=== PATIENT | female | born 1995 | race Caucasian/White ===

== ENCOUNTER → 2016-11-30 | Outpatient (CLI) | payer SELFPAY ==
[~2016-11-30] MED LIST: ANTIBIOTIC; BACTRIM DS 8001 TA1 PO; CLINDAMYCIN150 MG PO; COLACE100 MG PO; DIAZEPAM5 MG PO; EFFEXOR PO; FE-TABS325 MG PO; K-TAB20 MEQ PO; LAMOTRIGINE100 MG PO; MOTRIN800 MG PO; NAPROSYN500 MG PO; PERCOCET 325 MG1 TA6 PO; PRENATAL ONE DA1 TAB PO; PROVERA10 MG PO; Peridex 473 ML473 ML PO; QUETIAPINE FUM100 M3 PO; SEROQUEL PO; VISTARIL PO
== END | disposition home or self-care (01) ==
LOC: LAB 18:32
DX: N92.6 Irregular menstruation, unspecified (principal); R94.6 Abnormal results of thyroid function studies; R73.09 Other abnormal glucose; R63.5 Abnormal weight gain

== ENCOUNTER 2016-12-05 14:54 | Emergency (ER) | payer OTHER ==
[~2016-12-05] VITALS: Ht 154.9 cm; Wt 72.6 kg
[~2016-12-05 14:54] MED LIST changes: -CLINDAMYCIN150 MG PO; -DIAZEPAM5 MG PO; -K-TAB20 MEQ PO; -LAMOTRIGINE100 MG PO; -NAPROSYN500 MG PO; -Peridex 473 ML473 ML PO; -QUETIAPINE FUM100 M3 PO
[2016-12-05] MEDS ORDERED: DIAZEPAM5 MG PO (15:02)
[2016-12-05] MEDS ORDERED: QUETIAPINE FUM100 M3 PO (15:02)
[2016-12-05] MEDS ORDERED: LAMOTRIGINE100 MG PO (15:02)
[2016-12-05] MEDS ORDERED: NAPROSYN500 MG PO (15:05)
[2016-12-05] MEDS ORDERED: Peridex 473 ML473 ML PO (15:05)
[2016-12-05] MEDS ORDERED: CLINDAMYCIN150 MG PO (15:05)
[2016-12-28] MEDS ORDERED: K-TAB20 MEQ PO (02:15)
== END 2016-12-05 15:14 | disposition home or self-care (01) ==
LOC: ED 14:54
DX: K04.7 Periapical abscess without sinus (principal); F17.200 Nicotine dependence, unspecified, uncomplicated; Z88.0 Allergy status to penicillin; Z79.899 Other long term (current) drug therapy

== ENCOUNTER 2017-02-25 21:07 | Inpatient (IN) | payer OTHER ==
[~2017-02-25] VITALS: Ht 152.4 cm; Wt 66.7 kg
--- NOTE | ~2017-02-25 | EKG ---
[place], [place] ELECTROCARDIOGRAM REPORT [id number] #: [id number] ROOM: 424 DOCTOR: MAYA OLSON MD BIRTHDATE: [birth year] DOS: 02/25/2017 STUDY DONE: 02/25/2017 at 2334. Normal sinus rhythm at rate of 67, normal axis, normal EKG. MAYA OLSON MD CM:EKGRPT:ELECTROCARDIOGRAM REPORT [id number] 1555 MAYA OLSON MD
--- NOTE | ~2017-02-25 | O ---
[place], [place] OPERATIVE NOTE NAME: ISABEL MATA [facility] #: [id number] UNIT #: [id number] ROOM: 424 DOCTOR: SO PATINO DO BIRTHDATE: [birth year] DOS: 02/26/2017 PREOPERATIVE DIAGNOSIS: Right arm foreign body, antecubital abscess. POSTOPERATIVE DIAGNOSIS: Right arm foreign body, antecubital abscess. OPERATIVE PROCEDURE: Right arm foreign body antecubital region attempted removal of foreign body under C-arm guidance. SURGEON: So Patino DO. SUPERVISOR DOG LICENSE OFFICER: Camilla. INDICATIONS: The patient is a 21-year-old female with a history of IV drug abuse, which resulted in a hypodermic needle breaking off in the right antecubital region. The patient reported this just happened in the last day. She developed redness, swelling and tenderness in the antecubital area. No lymphangitis or red streaking. Risks and benefits of the procedure were explained to the patient preoperatively. Preoperative labs and x-rays were obtained. The patient was on IV antibiotics. PROCEDURE IN DETAIL: The right arm was marked in the holding room. The patient was brought to the operative suite. The right upper extremity was prepped and draped in usual orthopedic manner. Tourniquet was applied to the right upper arm. The arm was elevated and the tourniquet was inflated to 250 mmHg. C-arm was utilized to identify the location of the foreign body, which was approximately 0.7-1 cm, antecubital region, appeared to be superficial. The area was injected with Marcaine 0.5% with epinephrine in a superficial skin wheal. A monitored anesthesia was performed by the nurse dress fitter. The incision was made sharply with a scalpel approximately 2 cm in length just medial to the erythematous region and just lateral to the insertion of the biceps. Under loupe magnification, the subcutaneous tissue was spread. The C-arm was utilized to follow the foreign body, and self-retaining retractor, mosquito hemostats and tenotomy scissors were used to further evaluate the position of the foreign body. The foreign body was then noted to migrate proximally approximately 3 inches proximal to the incision. Concern was for an intravascular foreign body as the soft tissue had not been violated proximal to the antecubital area. The wound was copiously irrigated with normal saline. Cultures were obtained from the debrided tissue. The wound was closed in a horizontal mattress suture fashion. Xeroform, 4 x 4s and a Tegaderm dressing were applied. The tourniquet was released. The drapes were removed. Ultrasound was utilized to locate the foreign body without success. The anesthetic was reversed and the patient was taken to recovery room in satisfactory condition. COUNTS: Sponge and needle count correct. ESTIMATED BLOOD LOSS: Less than 5 mL. SPECIMENS: Cultures and Gram stain. [place], [place] OPERATIVE NOTE NAME: [facility] [id number] UNIT #: [id number] ROOM: [facility] DOCTOR: SO PATINO DO BIRTHDATE: [birth year] DRAINS: None. PACKING: None. The portable flat plate x-rays were obtained in the PACU to further determine the position of this foreign body, which is anticipated to be a needle from the intravenous injection. These indicated that the foreign body was no longer at the level of the elbow and possibly was at the proximal humeral level, but again this was inconclusive. The above findings were discussed with the patient's attending physician and radiologist. The decision was made for transfer of the patient to a facility with Vascular Surgery capabilities. SO PATINO DO CM:OPRECORD:OPERATIVE NOTE 1525 1705 SO PATINO DO 03/08/17 0746 interface
[~2017-02-25 21:07] MED LIST changes: +CLINDAMYCIN150 MG PO; +DIAZEPAM5 MG PO; +K-TAB20 MEQ PO; +LAMOTRIGINE100 MG PO; +NAPROSYN500 MG PO; +Peridex 473 ML473 ML PO; +QUETIAPINE FUM100 M3 PO
[2017-02-25 21:13] VITALS: BP 137/83
[2017-02-25] MEDS ORDERED: ZOLOFT25 MG PO (21:15)
[2017-02-25] MEDS ORDERED: SEROQUEL200 MG PO (21:16)
[2017-02-25] MEDS ORDERED: LAMICTAL100 MG PO (21:16)
[2017-02-25] MEDS ORDERED: EFFEXOR XR75 M1 PO (21:16)
[2017-02-25] MEDS ORDERED: VALIUM5 MG PO (21:16)
[2017-02-25 22:12] LABS: BILIRUBIN NEGATIVE (NEGATIVE); BLOOD TRACE-INTACT (NEGATIVE); CLARITY SL CLOUDY (CLEAR); COLOR YELLOW (YELLOW); GLUCOSE NEGATIVE (NEGATIVE); KETONE NEGATIVE (NEGATIVE); LEUKO ESTERASE NEGATIVE (NEGATIVE); NITRITE NEGATIVE (NEGATIVE); PH 6.5 (5.0-9.0); PROTEIN NEGATIVE (NEGATIVE)
[2017-02-25 22:19] LABS: EPITHELIAL CELLS 45-50
[2017-02-25 22:20] LABS: URINE REFLEX COMMENT NO (NO); WBC 0-2 wbc/hpf (0-5)
[2017-02-25 22:31] LABS: URINE AMPHETAMINES < 1000 (1000ng/ml); URINE BARBITURATES < 200 (200ng/ml); URINE COCAINE > 300 (300ng/ml)
[2017-02-25 22:33] LABS: BASO % 0.4 % (0.0-1.0); EOS # 0.1 10*3/uL (0.0-0.4); EOS % 1.1 % (1.0-4.0); HEMATOCRIT 37.7 % (37.0-47.0); HEMOGLOBIN 12.3 g/dl (12.0-16.0); LYMPH # 2.1 10*3/uL (1.3-4.4); LYMPH % 25.4 % (27.0-41.0); MEAN CELL VOLUME 88.5 fl (81.0-99.0); MEAN CORPUSCULAR HGB 28.9 pg (27.0-31.0); MEAN CORPUSCULAR HGB CONC 32.6 g/dl (33.0-37.0); MEAN PLATELET VOLUME 8.8 fl (9.6-12.3); MONO # 0.5 10*3/uL (0.1-1.0); MONO % 5.9 % (3.0-9.0); NEUT # 5.5 10*3/uL (2.3-7.9); PLATELET COUNT AUTOMATED 436 10*3/uL (130-400); RED BLOOD COUNT 4.26 10*6/uL (4.10-5.10); RED CELL DISTRI WIDTH 13.7 % (0-14.5); WHITE BLOOD COUNT 8.3 10*3/uL (4.8-10.8)
[2017-02-25 22:40] LABS: PROTHROMBIN TIME 10.4 SECONDS (9.0-12.4)
[2017-02-25 22:49] LABS: ALBUMIN 3.7 gm/dl (3.1-4.5); ALKALINE PHOSPHATASE 70 U/L (45-117); BILIRUBIN, TOTAL 0.2 mg/dl (0.2-1.0); BUN 4 mg/dl (7-24); CARBON DIOXIDE 27 mmol/L (21-32); CHLORIDE 105 mmol/L (98-107); EST GLOM FILT AFRICAN AMERICAN > 60 ml/min; GLUCOSE 94 mg/dL (65-99); POTASSIUM 3.6 mmol/L (3.5-5.1); SGOT/AST 46 IU/L (3-35); SGPT/ALT 61 U/L (12-78); SODIUM 140 mmol/L (136-145)
[2017-02-25 23:07] VITALS: BP 109/65
[2017-02-26 06:30] LABS: BASO % 0.4 % (0.0-1.0); EOS # 0.3 10*3/uL (0.0-0.4); EOS % 2.7 % (1.0-4.0); HEMATOCRIT 36.3 % (37.0-47.0); HEMOGLOBIN 11.6 g/dl (12.0-16.0); LYMPH # 4.5 10*3/uL (1.3-4.4); LYMPH % 46.1 % (27.0-41.0); MEAN CELL VOLUME 89.6 fl (81.0-99.0); MEAN CORPUSCULAR HGB 28.6 pg (27.0-31.0); MONO # 0.8 10*3/uL (0.1-1.0); MONO % 7.7 % (3.0-9.0); NEUT # 4.2 10*3/uL (2.3-7.9); NEUT % 42.9 % (47.0-73.0); PLATELET COUNT AUTOMATED 399 10*3/uL (130-400); RED BLOOD COUNT 4.05 10*6/uL (4.10-5.10); RED CELL DISTRI WIDTH 13.8 % (0-14.5); WHITE BLOOD COUNT 9.7 10*3/uL (4.8-10.8)
[2017-02-26 06:42] LABS: ALBUMIN 3.2 gm/dl (3.1-4.5); BUN 3 mg/dl (7-24); CARBON DIOXIDE 28 mmol/L (21-32); CHLORIDE 107 mmol/L (98-107); CHOLESTEROL 136 mg/dL (<200); EST GLOM FILT AFRICAN AMERICAN > 60 ml/min; GLUCOSE 79 mg/dL (65-99); MAGNESIUM 2.3 mg/dL (1.5-2.1); PHOSPHOROUS 3.9 mg/dL (2.5-4.9); POTASSIUM 3.8 mmol/L (3.5-5.1); SGOT/AST 41 IU/L (3-35); SGPT/ALT 52 U/L (12-78); SODIUM 141 mmol/L (136-145); TRIGLYCERIDES 106 mg/dl (<150); VLDL CHOLESTEROL 21 mg/dL (6-40)
[2017-02-26 06:47] LABS: ALKALINE PHOSPHATASE 64 U/L (45-117); BILIRUBIN, TOTAL 0.5 mg/dl (0.2-1.0); HDL CHOLESTEROL 44 mg/dl (40-60); HEMOGLOBIN A1c 5.3 % (4.8-5.6); LDL CHOLESTEROL 71 mg/dL (9-159); THYROID STIM HORMONE (HS) 0.988 uIU/ml (0.358-4.75); TOTAL PROTEIN 7.1 gm/dL (6.4-8.2)
[2017-02-26 07:06] LABS: PROTHROMBIN TIME 10.2 SECONDS (9.0-12.4)
[2017-02-26 08:00] VITALS: BP 100/60
[2017-02-26 08:09] LABS: FOLIC ACID 12.7 ng/mL (>5.38); VITAMIN D, 25-HYDROXY 9.2 ng/mL (30-100)
[2017-02-26 11:32] VITALS: BP 108/57
[2017-02-26 14:27] VITALS: BP 131/93
[2017-02-26 14:42] VITALS: BP 127/96
[2017-02-26 14:57] VITALS: BP 125/86
[2017-02-26] MEDS ORDERED: VITAMIN D50000 I3 PO (14:57)
[2017-02-26 16:00] VITALS: BP 125/86
== END 2017-02-26 16:41 | disposition left against medical advice (07) | DRG 571 ==
LOC: ED 21:07 → EDHOLD 22:19 → 4E 22:19
PROVIDERS: Emergency Medicine; Student in an Organized Health Care Education/Training Program
PROC: 0HBDXZZ Excision of Right Lower Arm Skin, External Approach (ICD-10-PCS; principal; 2017-02-25)
PROC: 0XJ Anatomical Regions, Upper Extremities, Inspection (ICD-10-PCS; principal; 2017-02-25)
DX: S40.851A Superficial foreign body of right upper arm, initial encounter (principal); L03.113 Cellulitis of right upper limb; E44.0 Moderate protein-calorie malnutrition; F20.9 Schizophrenia, unspecified; E83.41 Hypermagnesemia; F19.10 Other psychoactive substance abuse, uncomplicated; F17.200 Nicotine dependence, unspecified, uncomplicated; Z53.21 Procedure and treatment not carried out due to patient leaving prior to being seen by health care provider; F31.9 Bipolar disorder, unspecified; F41.9 Anxiety disorder, unspecified; E66.3 Overweight; Z88.0 Allergy status to penicillin; Z79.899 Other long term (current) drug therapy; Z68.29 Body mass index [BMI] 29.0-29.9, adult; Z71.6 Tobacco abuse counseling

== ENCOUNTER 2018-09-28 16:36 | Emergency (ER) | payer SELFPAY ==
[~2018-09-28] VITALS: Wt 55.8 kg
[~2018-09-28 16:36] MED LIST changes: +EFFEXOR XR75 M1 PO; +LAMICTAL100 MG PO; +SEROQUEL200 MG PO; +VALIUM5 MG PO; +VITAMIN D50000 I3 PO; +ZOLOFT25 MG PO
== END 2018-09-28 18:17 | disposition home or self-care (01) ==
LOC: ED 16:36
DX: R51 Headache (principal); H53.8 Other visual disturbances; R42 Dizziness and giddiness; R11.0 Nausea; F17.200 Nicotine dependence, unspecified, uncomplicated; Z88.0 Allergy status to penicillin; Z88.1 Allergy status to other antibiotic agents; Z79.899 Other long term (current) drug therapy

== ENCOUNTER 2019-03-26 15:32 | Emergency (ER) | payer MEDICAID ==
[~2019-03-26] VITALS: Ht 152.4 cm; Wt 59.0 kg
--- NOTE | ~2019-03-26 | EKG ---
[place], [place] ELECTROCARDIOGRAM REPORT NAME: ISABEL MATA UNIT #: [id number] ROOM: DOCTOR: EPIPHANY DRAFT REPORT BIRTHDATE: [birth year] [facility] Test Date: 2019-03-26 Test Time: 16:09:46 Pat Name: ISABEL MATA Department: Room: Gender: F Enterprise Systems Architect: Jhony Jimenes : 1995 Requested By: ERIN MORA Order Number: [id number] Reading MD: Ghazala Grimaldo MD Measurements Intervals [place] Rate: 43 P: 5 FL: 147 QRS: 44 QRSD: 93 T: 57 QT: 469 QTc: 397 Interpretive Statements Sinus bradycardi ST elev, probable normal early repol pattern Baseline wander in lead(s) V6 Electronically Signed On 03-30-2019 7:11:17 PDT by Ghazala Grimaldo MD CM:EKGRPT:ELECTROCARDIOGRAM REPORT 1609 0711 ERIN MEYER DRAFT REPORT ERIN MORA MD
[2019-03-26 16:37] LABS: BASO % 0.4 % (0.0-1.0); EOS # 0.1 10*3/uL (0.0-0.4); EOS % 1.5 % (1.0-4.0); HEMATOCRIT 33.1 % (37.0-47.0); HEMOGLOBIN 10.8 g/dl (12.0-16.0); LYMPH # 3.7 10*3/uL (1.3-4.4); LYMPH % 47.4 % (27.0-41.0); MEAN CORPUSCULAR HGB 30.3 pg (27.0-31.0); MEAN CORPUSCULAR HGB CONC 32.6 g/dl (33.0-37.0); MEAN PLATELET VOLUME 9.7 fl (9.6-12.3); MONO # 0.4 10*3/uL (0.1-1.0); MONO % 4.4 % (3.0-9.0); NEUT # 3.6 10*3/uL (2.3-7.9); PLATELET COUNT AUTOMATED 285 10*3/uL (130-400); RED BLOOD COUNT 3.56 10*6/uL (4.10-5.10); RED CELL DISTRI WIDTH 12.4 % (0-14.5); WHITE BLOOD COUNT 7.9 10*3/uL (4.8-10.8)
[2019-03-26 16:50] LABS: ACT PARTIAL THROMBO TIME 26.7 SECONDS (20.0-32.1)
[2019-03-26 16:58] LABS: ALBUMIN 3.2 gm/dl (3.1-4.5); ALKALINE PHOSPHATASE 50 U/L (45-117); BUN 8 mg/dl (7-24); CHLORIDE 110 mmol/L (98-107); CREATININE 0.78 mg/dL (0.55-1.02); LIPASE 85 U/L (73-393); SGOT/AST 21 IU/L (3-35); SGPT/ALT 32 U/L (12-78); SODIUM 142 mmol/L (136-145); TOTAL PROTEIN 6.8 gm/dL (6.4-8.2); TROPONIN I < 0.015 ng/ml (<0.045)
[2019-03-26 17:18] LABS: BILIRUBIN NEGATIVE (NEGATIVE); BLOOD NEGATIVE (NEGATIVE); CLARITY CLEAR (CLEAR); COLOR YELLOW (YELLOW); GLUCOSE NEGATIVE (NEGATIVE); KETONE NEGATIVE (NEGATIVE); LEUKO ESTERASE NEGATIVE (NEGATIVE); NITRITE NEGATIVE (NEGATIVE); SPECIFIC GRAVITY <= 1.005 (1.005-1.030); UROBILINOGEN 0.2 E.U./dl (0.2-1.0)
[2019-03-26 17:26] LABS: BACTERIA 1+; WBC 0-2 wbc/hpf (0-5)
[2019-03-26 17:28] LABS: URINE AMPHETAMINES < 1000 (1000ng/ml); URINE BARBITURATES < 200 (200ng/ml); URINE BENZODIAZEPINES > 200 (200ng/ml); URINE CANNABINOIDS (THC) > 50 (50ng/ml); URINE COCAINE < 300 (300ng/ml); URINE METHADONE < 300 (300ng/ml); URINE OPIATES < 300 (300ng/ml)
[2019-03-26 17:33] LABS: URINE PHENCYCLIDINE < 25 (25ng/ml)
[2019-03-26] MEDS ORDERED: TESSALON PERLE100 M1 PO (17:48)
[2019-03-26] MEDS ORDERED: PREDNISONE20 M1 PO (17:48)
[2019-03-26] MEDS ORDERED: PROVENTIL HFA6.7 GM INH (17:48)
== END 2019-03-26 18:15 ==
LOC: ED 15:32
PROVIDERS: Physician Assistant
DX: J40 Bronchitis, not specified as acute or chronic (principal); R00.1 Bradycardia, unspecified; R42 Dizziness and giddiness; R79.1 Abnormal coagulation profile; F17.200 Nicotine dependence, unspecified, uncomplicated; Z88.0 Allergy status to penicillin; Z88.1 Allergy status to other antibiotic agents

== ENCOUNTER → 2020-01-19 | Outpatient (CLI) | payer SELFPAY ==
[~2020-01-19] MED LIST changes: +PREDNISONE20 M1 PO; +PROVENTIL HFA6.7 GM INH; +TESSALON PERLE100 M1 PO
[2020-01-19 14:23] LABS: FREE T4 0.97 ng/dl (0.76-1.46)
[2020-01-19 14:28] LABS: THYROID STIM HORMONE (HS) 0.649 uIU/ml (0.358-4.75)
[2020-01-20 07:07] LABS: FOLLICLE STIMULATING HORMONE 6.7 mIU/mL (.)
== END | disposition home or self-care (01) ==
LOC: LAB 13:20
DX: N96 Recurrent pregnancy loss (principal)

== ENCOUNTER → 2020-09-03 | Outpatient (CLI) | payer BC | END | disposition home or self-care (01) | LOC: LAB 11:48 | PROVIDERS: ATTEND Counselor Professional | DX: F11.21 Opioid dependence, in remission (principal) ==

== ENCOUNTER → 2020-11-20 | Outpatient (CLI) | payer BC | END | disposition home or self-care (01) | LOC: COVID19 09:34 | PROVIDERS: ATTEND Internal Medicine | DX: Z20.822 Contact with and (suspected) exposure to COVID-19 (principal) ==

== ENCOUNTER → 2020-11-26 | Outpatient (CLI) | payer BC ==
[2020-11-26 19:40] LABS: BASO % 0.4 % (0.0-1.0); EOS # 0.4 10*3/uL (0.0-0.4); EOS % 4.1 % (1.0-4.0); HEMATOCRIT 31.6 % (37.0-47.0); LYMPH # 3.3 10*3/uL (1.3-4.4); LYMPH % 36.3 % (27.0-41.0); MEAN CELL VOLUME 91.1 fl (81.0-99.0); MEAN CORPUSCULAR HGB 29.4 pg (27.0-31.0); MEAN CORPUSCULAR HGB CONC 32.3 g/dl (33.0-37.0); MEAN PLATELET VOLUME 9.5 fl (9.6-12.3); MONO # 0.7 10*3/uL (0.1-1.0); MONO % 7.2 % (3.0-9.0); NEUT # 4.6 10*3/uL (2.3-7.9); NEUT % 51.7 % (47.0-73.0); PLATELET COUNT AUTOMATED 348 10*3/uL (130-400); RED BLOOD COUNT 3.47 10*6/uL (4.10-5.10)
[2020-11-26 19:50] LABS: URINE AMPHETAMINES < 1000 (1000ng/ml); URINE BARBITURATES < 200 (200ng/ml); URINE BENZODIAZEPINES < 200 (200ng/ml); URINE CANNABINOIDS (THC) < 50 (50ng/ml); URINE COCAINE < 300 (300ng/ml); URINE METHADONE < 300 (300ng/ml); URINE OPIATES < 300 (300ng/ml)
[2020-11-26 19:51] LABS: URINE PHENCYCLIDINE < 25 (25ng/ml)
[2020-11-26 19:58] LABS: ALBUMIN 3.5 gm/dl (3.1-4.5); ALKALINE PHOSPHATASE 61 U/L (45-117); BUN 7 mg/dl (7-24); CHLORIDE 102 mmol/L (98-107); CHOLESTEROL 151 mg/dL (<200); HDL CHOLESTEROL 42 mg/dl (40-60); LDL CHOLESTEROL 90 mg/dL (9-159); POTASSIUM 3.6 mmol/L (3.5-5.1); SGOT/AST 25 IU/L (3-35); SGPT/ALT 30 U/L (12-78); SODIUM 135 mmol/L (136-145); TOTAL PROTEIN 7.1 gm/dL (6.4-8.2); TRIGLYCERIDES 97 mg/dl (<150); VLDL CHOLESTEROL 19 mg/dL (6-40)
[2020-11-26 20:04] LABS: THYROID STIM HORMONE (HS) 0.897 uIU/ml (0.358-4.75)
== END | disposition home or self-care (01) ==
LOC: LAB 18:36
PROVIDERS: Nurse Practitioner
DX: O02.1 Missed abortion (principal); Z51.81 Encounter for therapeutic drug level monitoring

== ENCOUNTER → 2021-10-24 | Outpatient (CLI) | payer BC | END | disposition home or self-care (01) | LOC: COVID19 16:37 | PROVIDERS: ATTEND Podiatrist Foot & Ankle Surgery | DX: U07.1 COVID-19 (principal) ==

== ENCOUNTER → 2023-05-19 | Outpatient (CLI) | payer SELFPAY | END | disposition home or self-care (01) | LOC: LAB 10:09 | PROVIDERS: ATTEND Physician Assistant | DX: Z51.81 Encounter for therapeutic drug level monitoring (principal) ==